=== PATIENT | male | born 1970 | race Hispanic/Latino ===

== ENCOUNTER 2022-04-19 17:35 | Emergency (ER) | payer SELFPAY ==
--- NOTE | 2022-04-19 18:09 | EDPHYS ---
Physician Documentation [facility] Name: Rivera Mccoy Age: 52 yrs Sex: Male : 1970 Arrival Date: 04/19/2022 Time: 17:36 Bed Waiting Private MD: ED Physician Dominic Hurt HPI: 04/19 18:25 This 52 yrs old Male presents to ER via Ambulatory with complaints of Poison kb Tsering. 18:25 The patient presents with cellulitis of the left leg and right leg. Description: kb erythematous, swollen, warm. Onset: The symptoms/episode began/occurred 1 week(s) ago. Possible cause(s): poison tsering. Associated signs and symptoms: Pertinent positives: erythema, swelling, Pertinent negatives: fever. Modifying factors: the symptoms are alleviated by nothing, the symptoms are aggravated by nothing. Severity of symptoms: At their worst the symptoms were moderate, in the emergency department the symptoms are unchanged. The patient has not experienced similar symptoms in the past. The patient has not recently seen a physician. Pt reports he has a rash from poison tsering and it got infected. States he was put on keflex, but it hasn't gotten better and came today to get something for the itching. Started keflex 4 days ago. Denies fever. . Historical: - Allergies: 18:07 No Known Allergies; aa5 - PMHx: 18:06 Hypertension; aa5 ROS: 18:17 Constitutional: Negative for fever, chills, and weight loss. kb 18:24 Skin: Positive for erythema, rash, swelling, of the right leg and left leg. kb 18:24 All other systems are negative. Exam: 18:24 Constitutional: This is a well developed, well nourished patient who is awake, alert, kb and in no acute distress. Head/Face: Normocephalic, atraumatic. ENT: Moist Mucous membranes Respiratory: Respirations even and unlabored. No increased work of breathing. Talking in full sentences MS/ Extremity: Pulses equal, no cyanosis. Neurovascular intact. Full, normal range of motion. Neuro: Awake and alert, GCS 15, oriented to person, place, time, and situation. Moves all extremities. Normal gait. Psych: Awake, alert, with orientation to person, place and time. Behavior, mood, and affect are within normal limits. 18:24 Skin: cellulitis, that is moderate, on the right and left lower leg, rash a moderate rash is noted, consistent with contact dermatitis, on the right leg and left leg. Vital Signs: 18:05 BP 165 / 110; Pulse 72; Resp 18 S; Temp 98.5(O); Pulse Ox 100% on R/A; Weight 99.79 kg aa5 (R); Height 5 ft. 10 in. (177.80 cm) (R); 18:05 Body Mass Index 31.57 (99.79 kg, 177.80 cm) aa5 MDM: 18:08 Patient medically screened. kb 18:17 Data reviewed: vital signs, nurses notes. Data interpreted: Pulse oximetry: on room air kb is 100 %. Interpretation: normal. Counseling: I had a detailed discussion with the patient and/or guardian regarding: the historical points, exam findings, and any diagnostic results supporting the discharge/admit diagnosis, the need for outpatient follow up, a family practitioner, to return to the emergency department if symptoms worsen or persist or if there are any questions or concerns that arise at home. Administered Medications: No medications were administered Disposition: 18:45 Co-signature as Attending Physician, Dominic Hurt MD. rn Disposition Summary: 04/19/22 18:08 Discharge Ordered Location: Home kb Condition: Stable kb Diagnosis - Cellulitis of left lower limb kb - Cellulitis of right lower limb kb - Allergic contact dermatitis due to plants, except food kb Followup: kb - With: Emergency Department - When: As needed - Reason: Worsening of condition Followup: kb - With: Private Physician - When: 2 - 3 days - Reason: Recheck today's complaints, Continuance of care, Re-evaluation by your physician Discharge Instructions: - Discharge Summary Sheet kb - Cellulitis, Adult, [id number] kb - Poison Tsering Dermatitis, [id number] kb Forms: - Medication Reconciliation Form kb - Thank You Letter kb - Antibiotic Education kb - Prescription Opioid Use kb Prescriptions: - Bactrim DS 800-160 mg Oral Tablet - take 1 tablet by ORAL route every 12 hours for 10 days; 20 tablet; Refills: 0, kb Product Selection Permitted Signatures: Rita Vázquez, GIUSEPPE-C DIRECTOR TALENT-Ckb Hurt, Dominic, MD MD rn Milton, Meera, RN RN aa5
--- NOTE | 2022-04-19 18:09 | ER ---
Nurse's Notes [facility] Name: Rivera Mccoy Age: 52 yrs Sex: Male : 1970 Arrival Date: 04/19/2022 Time: 17:36 Bed Waiting Private MD: Diagnosis: Cellulitis of left lower limb;Cellulitis of right lower limb;Allergic contact dermatitis due to plants, except food Presentation: 04/19 18:05 Chief complaint: Patient states: exposed to poison alin 1 week ago, rash to shira legs, aa5 and is currently taking Keflex and Mupirocin. Coronavirus screen: At this time, the client does not indicate any symptoms associated with coronavirus-19. Ebola Screen: Patient denies travel to an Ebola-affected area in the 21 days before illness onset. Initial Sepsis Screen: Does the patient meet any 2 criteria? No. Patient's initial sepsis screen is negative. Does the patient have a suspected source of infection? Yes:. Risk Assessment: Do you want to hurt yourself or someone else? Patient reports no desire to harm self or others. Onset of symptoms was March 2022. 18:05 Method Of Arrival: Ambulatory aa5 18:05 Acuity: SHANITA 5 aa5 Historical: - Allergies: 18:07 No Known Allergies; aa5 - PMHx: 18:06 Hypertension; aa5 Assessment: 18:12 Reassessment: Patient is alert, oriented x 3, equal unlabored respirations, skin aa5 warm/dry/pink. Vital Signs: 18:05 BP 165 / 110; Pulse 72; Resp 18 S; Temp 98.5(O); Pulse Ox 100% on R/A; Weight 99.79 kg aa5 (R); Height 5 ft. 10 in. (177.80 cm) (R); 18:05 Body Mass Index 31.57 (99.79 kg, 177.80 cm) aa5 ED Course: 17:36 Patient arrived in ED. mr 17:38 Rita Vázquez FNP-C [facility] kb 17:38 Dominic Hurt MD is Attending Physician. kb 18:05 Arm band placed on. aa5 18:06 Triage completed. aa5 18:12 No provider procedures requiring assistance completed. Patient did not have IV access aa5 during this emergency room visit. Administered Medications: No medications were administered Medication: 18:12 VIS not applicable for this client. aa5 Outcome: 18:08 Discharge ordered by MD. oconnor 18:12 Discharged to home ambulatory. aa5 18:12 Condition: stable 18:12 Discharge instructions given to patient, Instructed on discharge instructions, follow up and referral plans. medication usage, Demonstrated understanding of instructions, follow-up care, medications, Prescriptions given X 1. 18:13 Patient left the ED. aa5 Signatures: Rita Vázquez, JULES CHIN-Audelia Márquez Yoan, Meera, RN RN aa5
[2022-04-19 19:11] VITALS: BP 165/110; TEMP 98.5; O2SAT 100
== END 2022-04-19 18:13 | disposition home or self-care (01) ==
LOC: ER 17:35
DX: L23.7 Allergic contact dermatitis due to plants, except food (principal); L03.116 Cellulitis of left lower limb; L03.115 Cellulitis of right lower limb
CPT/HCPCS: 99282

== ENCOUNTER 2022-06-23 20:39 | Emergency (ER) | payer SELFPAY ==
[2022-06-23] MEDS ORDERED: MORPHINE 4 MG/ML SYR ONE (21:50)
[2022-06-23] MEDS ORDERED: dexAMETHasone 10 MG/ML VIAL ONE (21:50)
[2022-06-23] MEDS ORDERED: KETOROLAC 30 MG/ML INJ ONE (21:50)
--- NOTE | 2022-06-23 22:32 | EDPHYS ---
Physician Documentation [facility] Name: Rivera Mccoy Age: 52 yrs Sex: Male : 1970 Arrival Date: 06/23/2022 Time: 20:41 Bed 15 Private MD: ED Physician Dominic Hurt HPI: 06/23 21:21 This 52 yrs old Male presents to ER via Ambulatory with complaints of Low Back rn Pain. 21:21 This 52 yrs old Male presents to ER via Ambulatory with complaints of Low Back rn Pain. 21:21 The patient presents with pain that is acute. The symptoms are located in the low back. rn The pain radiates to the right leg. Onset: The symptoms/episode began/occurred yesterday. Modifying factors: The patient symptoms are alleviated by remaining still, the patient symptoms are aggravated by any movement. Associated signs and symptoms: Pertinent negatives: abdominal pain, chest pain, dysuria, fever, hematuria, incontinence, nausea, numbness, tingling, urinary retention, vomiting, weakness. Severity of symptoms: At their worst the symptoms were moderate, in the emergency department the symptoms are unchanged. The patient has experienced similar episodes in the past. The patient has not recently seen a physician. Pt reports has had back pain several times in past, similar to today, just worse today. Radiates to right buttocks, but no weakness/numbness/bowel/bladder issues. . Historical: - Allergies: 20:47 No Known Allergies; hb - Home Meds: 20:47 lisinopril Oral [Active]; hb - PMHx: 20:47 Hypertension; hb - Immunization history:: Adult Immunizations up to date. - Social history:: Smoking status: Patient denies any tobacco usage or history of. - Family history:: not pertinent. - Hospitalizations: : No recent hospitalization is reported. ROS: 21:21 Constitutional: Negative for fever, chills, and weight loss, Eyes: Negative for injury, rn pain, redness, and discharge, Neck: Negative for injury, pain, and swelling, Cardiovascular: Negative for chest pain, palpitations, and edema, Respiratory: Negative for shortness of breath, cough, wheezing, and pleuritic chest pain, Abdomen/GI: Negative for abdominal pain, nausea, vomiting, diarrhea, and constipation, Back: Negative for injury : Negative for injury, bleeding, discharge, and swelling, MS/Extremity: Negative for injury and deformity, Skin: Negative for injury, rash, and discoloration, Neuro: Negative for headache, weakness, numbness, tingling, and seizure. Exam: 21:21 Constitutional: This is a well developed, well nourished patient who is awake, alert, rn pacing in triage Head/Face: Normocephalic, atraumatic. Cardiovascular: Regular rate and rhythm. No pulse deficits. Respiratory: No increased work of breathing, no retractions or nasal flaring. Abdomen/GI: Soft, non-tender Back: No spinal tenderness. + mild tenderness right lower back. Skin: Warm, dry MS/ Extremity: Pulses equal, no cyanosis. Neurovascular intact. Full, normal range of motion. Equal circumference. Neuro: Awake and alert, GCS 15, oriented to person, place, time, and situation. Cranial nerves II-XII grossly intact. Motor strength 5/5 in all extremities. Sensory grossly intact. Cerebellar exam normal. Antalgic gait. Vital Signs: 20:45 BP 158 / 77; Pulse 70; Resp 16; Temp 97.8; Pulse Ox 98% on R/A; Weight 98.88 kg; Height hb 5 ft. 10 in. (177.80 cm); Pain 9/10; 22:02 BP 146 / 88; Pulse 56; Resp 18; Pulse Ox 96% on R/A; ke1 22:30 Pain 2/10; ke1 22:32 Pain 2/10; ke1 22:35 BP 142 / 83; Pulse 58; Resp 18; Pulse Ox 99% on R/A; Pain 1/10; ke1 20:45 Body Mass Index 31.28 (98.88 kg, 177.80 cm) hb MDM: 20:47 Patient medically screened. rn 22:28 Differential diagnosis: strain, sciatica, Herniated disc. Data reviewed: vital signs, rn nurses notes, and as a result, I will discharge patient. Counseling: I had a detailed discussion with the patient and/or guardian regarding: the historical points, exam findings, and any diagnostic results supporting the discharge/admit diagnosis, the need for outpatient follow up, to return to the emergency department if symptoms worsen or persist or if there are any questions or concerns that arise at home. Response to treatment: the patient's symptoms have markedly improved after treatment, and as a result, I will discharge patient. Special discussion: I discussed with the patient/guardian in detail that at this point there is no indication for admission to the hospital. It is understood, however, that if the symptoms persist or worsen the patient needs to return immediately for re-evaluation. 06/23 20:52 Order name: IV Start; Complete Time: 22:01 rn Administered Medications: 22: Drug: Decadron - Dexamethasone 10 mg Route: IVP; Site: right antecubital; ke1 22:32 Follow up: Response: No adverse reaction ke1 22:01 Drug: morphine 4 mg Route: IVP; Infused Over: 4 mins; Site: right antecubital; ke1 22:32 Follow up: Pain 2/10 Adult; Response: Pain is decreased ke1 22:01 Drug: Ketorolac 30 mg Route: IVP; Site: right antecubital; ke1 22:30 Follow up: Pain 2/10 Adult; Response: Pain is decreased ke1 Disposition Summary: 06/23/22 22:31 Discharge Ordered Location: Home rn Problem: new rn Symptoms: have improved rn Condition: Stable rn Diagnosis - Low back pain rn - Muscle spasm of back rn - Radiculopathy, lumbar region rn Followup: rn - With: Private Physician - When: As needed - Reason: Recheck today's complaints, Re-evaluation by your physician Discharge Instructions: - Discharge Summary Sheet rn - Acute Back Pain, Adult rn - Lumbosacral Radiculopathy rn - Muscle Cramps and Spasms rn - Pinched Nerve rn - Back Exercises rn Forms: - Medication Reconciliation Form rn - Thank You Letter rn - Antibiotic porcelain turner - Prescription Opioid Use rn - Work release form ke1 Prescriptions: - Cyclobenzaprine 10 mg Oral Tablet - take 1 tablet by ORAL route every 8 hours As needed; 12 tablet; Refills: 0, rn Product Selection Permitted - Tramadol 50 mg Oral Tablet - take 1 tablet by ORAL route every 8 hours as needed; 12 tablet; Refills: 0, rn Product Selection Permitted - Medrol (Ramone) 4 mg Oral Tablets, Dose Pack - take 1 tablet by ORAL route as directed - follow package instructions; 1 rn packet; Refills: 0, Product Selection Permitted Signatures: Dominic Hurt MD MD rn Baxter, Heather, RN RN hb Ebrottie, Kouassi, RN RN ke1
--- NOTE | 2022-06-23 22:32 | ER ---
Nurse's Notes [facility] Name: Rivera Mccoy Age: 52 yrs Sex: Male : 1970 Arrival Date: 06/23/2022 Time: 20:41 Bed 15 Private MD: Diagnosis: Low back pain;Muscle spasm of back;Radiculopathy, lumbar region Presentation: 06/23 20:45 Chief complaint: Low back that radiates to right buttock x 2 days. Denies injury. hb Coronavirus screen: At this time, the client does not indicate any symptoms associated with coronavirus-19. Ebola Screen: No symptoms or risks identified at this time. Risk Assessment: Do you want to hurt yourself or someone else? Patient reports no desire to harm self or others. Onset of symptoms was June 22, 2022. 20:45 Method Of Arrival: Ambulatory hb 20:45 Acuity: SHANITA 3 hb 22:01 Initial Sepsis Screen: Does the patient meet any 2 criteria? No. Patient's initial ke1 sepsis screen is negative. Does the patient have a suspected source of infection? No. Patient's initial sepsis screen is negative. Triage Assessment: 22:01 General: Appears uncomfortable, Behavior is appropriate for age. ke1 Historical: - Allergies: 20:47 No Known Allergies; hb - Home Meds: 20:47 lisinopril Oral [Active]; hb - PMHx: 20:47 Hypertension; hb - Immunization history:: Adult Immunizations up to date. - Social history:: Smoking status: Patient denies any tobacco usage or history of. - Family history:: not pertinent. - Hospitalizations: : No recent hospitalization is reported. Screenin:59 Abuse screen: Denies threats or abuse. Nutritional screening: No deficits noted. ke1 Tuberculosis screening: No symptoms or risk factors identified. Fall Risk None identified. Assessment: 21:59 Pain: Complains of pain in back Pain radiates to right leg Pain currently is 9 out of ke1 10 on a pain scale. at worst was 10 out of 10 on a pain scale. level that patient reports is acceptable is 5 out of 10 on a pain scale. Vital Signs: 20:45 BP 158 / 77; Pulse 70; Resp 16; Temp 97.8; Pulse Ox 98% on R/A; Weight 98.88 kg; Height hb 5 ft. 10 in. (177.80 cm); Pain 9/10; 22:02 BP 146 / 88; Pulse 56; Resp 18; Pulse Ox 96% on R/A; ke1 22:30 Pain 2/10; ke1 22:32 Pain 2/10; ke1 22:35 BP 142 / 83; Pulse 58; Resp 18; Pulse Ox 99% on R/A; Pain 1/10; ke1 20:45 Body Mass Index 31.28 (98.88 kg, 177.80 cm) hb ED Course: 20:41 Patient arrived in ED. ja2 20:47 Triage completed. hb 20:47 Dominic Hurt MD is Attending Physician. rn 20:47 Arm band placed on. hb 21:28 Chiara Cordero RN is Primary Nurse. ke1 22:00 Inserted saline lock: 20 gauge in right antecubital area, using aseptic technique. ke1 22:01 Bed in low position. Call light in reach. ke1 22:32 No provider procedures requiring assistance completed. ke1 22:46 IV discontinued. ke1 Administered Medications: 22:01 Drug: Decadron - Dexamethasone 10 mg Route: IVP; Site: right antecubital; ke1 22:32 Follow up: Response: No adverse reaction ke1 22:01 Drug: morphine 4 mg Route: IVP; Infused Over: 4 mins; Site: right antecubital; ke1 22:32 Follow up: Pain 2/10 Adult; Response: Pain is decreased ke1 22:01 Drug: Ketorolac 30 mg Route: IVP; Site: right antecubital; ke1 22:30 Follow up: Pain 2/10 Adult; Response: Pain is decreased ke1 Medication: 22:32 VIS not applicable for this client. ke1 Outcome: 22:31 Discharge ordered by . rn 22:45 Discharged to home ambulatory. ke1 22:45 Condition: good 22:45 Discharge instructions given to patient. 22:47 Patient left the ED. ke1 Signatures: Dominic Hurt MD MD rn Baxter, Heather, RN RN Karlee Soares [facility] Chiara Cordero RN RN ke1 Corrections: (The following items were deleted from the chart) 20:50 20:45 Acuity: SHANITA 4 hb hb 20:51 20:45 Acuity: SHANITA 4 hb hb 22:00 21:59 Pain: Complains of pain in back Pain radiates to right leg ke1 ke1
[2022-06-24 01:17] VITALS: TEMP 97.8
[2022-06-24 01:26] VITALS: BP 142/83; O2SAT 99
== END 2022-06-23 22:47 | disposition home or self-care (01) ==
LOC: ER 20:39
DX: M62.830 Muscle spasm of back (principal); M54.16 Radiculopathy, lumbar region; I10 Essential (primary) hypertension
CPT/HCPCS: J1100

== ENCOUNTER 2023-03-07 12:23 | Emergency (ER) | payer SELFPAY ==
[2023-03-07] MEDS ORDERED: MECLIZINE HCL 12.5 MG TAB ONE (13:04)
[2023-03-07] MEDS ORDERED: ONDANSETRON 4 MG/2 ML VIAL ONE (13:04)
[2023-03-07] MEDS ORDERED: NA CHLORIDE 0.9% 1,000 ML ONE (13:04)
--- NOTE | 2023-03-07 13:05 | RAD REPORT ---
EXAM DESCRIPTION: CT - Ct Stroke Brain Wo Cont - 03/07/2023 12:58 pm CLINICAL HISTORY: STROKE ALERT COMPARISON: No comparisons TECHNIQUE: All CT scans are performed using dose optimization technique as appropriate and may inclu de automated exposure control or mA/KV adjustment according to patient size. FINDINGS: No intracranial hemorrhage, hydrocephalus or extra-axial fluid collection.No areas of brai n edema or evidence of midline shift. 2 cm mucous retention cyst versus polyp right maxillary antrum. The paranasal sinuses and mastoids ar e otherwise clear. The calvarium is intact. IMPRESSION: No acute intracranial abnormality. If there is continued clinical concern for CVA, MR imaging of the brain would be recommended. The findings were discussed with Dr. Hurt in the ER On 03/07/2023 at 1 p.m. by telephone.
[2023-03-07 13:10] LABS: Absolute Lymphocytes (CBC) 1.3 K/uL (0.7-4.9); Hematocrit 46.1 % (39.6-49.0); Lymphocytes % 28.8 % (15.3-44.8); MCV 84.2 fL (80-100); MPV 7.9 fL (7.6-11.3); RBC Red Blood Cell Count 5.47 M/uL (4.33-5.43)
--- NOTE | 2023-03-07 13:15 | RAD REPORT ---
EXAM DESCRIPTION: CT - Head angio - 03/07/2023 1:02 pm CLINICAL HISTORY: DIZZINESS Headache, drowsiness, CVA symptomology COMPARISON: Ct Stroke Brain Wo Cont dated 03/07/2023 TECHNIQUE: CT angiography of the head was performed with MIPs. All CT scans are performed using dose optimization technique as appropriate and may include automated exposure control or mA/KV adjustment according to patient size. FINDINGS: No evidence of large vessel occlusion. No evidence of aneurysm is detected. No flow-limiti ng stenosis or vascular malformation identified. Antegrade flow is seen in the vertebral arteries. The vertebral arteries are codominant. The visualized dural venous sinuses are patent. IMPRESSION: No significant flow abnormality is detected.
--- NOTE | 2023-03-07 13:22 | RAD REPORT ---
EXAM DESCRIPTION: CT - Neck Angio - 03/07/2023 1:02 pm CLINICAL HISTORY: dizziness Headache, drowsiness COMPARISON: No comparisons TECHNIQUE: CT angiography of the neck vessels was performed with MIPs. All CT scans are performed using dose optimization technique as appropriate and may include automated exposure control or mA/KV adjustment according to patient size. FINDINGS: A left aortic arch is identified with normal three vessel configuration of the great vesse ls. No significant flow abnormality is seen of the common carotid bilaterally. No significant stenosis is identified involving the cervical segments of both internal carotid arteri es. Normal flow is seen within both vertebral arteries. IMPRESSION: No significant flow abnormality of the neck vessels is identified. NASCET criteria used. Mild 0-49% stenosis Moderate 50-69% stenosis Severe 70-99% stenosis
--- NOTE | 2023-03-07 13:25 | RAD REPORT ---
EXAM DESCRIPTION: RAD - Chest Single View - 03/07/2023 1:08 pm CLINICAL HISTORY: dizziness Chest pain. COMPARISON: Chest Single View dated 07/05/2017; CHEST SINGLE VIEW dated 12/18/2015 FINDINGS: Portable technique limits examination quality. The lungs are grossly clear. The heart is normal in size. No displaced fractures. IMPRESSION: No acute intrathoracic process suspected.
[2023-03-07 13:40] LABS: Magnesium 2.3 mg/dL (1.6-2.4); Potassium 3.8 mEq/L (3.5-5.1); Troponin High Sensitivity 32.7 pg/mL (<58.9)
[2023-03-07 13:54] LABS: Protime INR 1.06
[2023-03-07] MEDS ORDERED: ASPIRIN 325 MG TAB ONE (14:01)
[2023-03-07] MEDS ORDERED: FOLIC ACID 5 MG/ML VIAL ONE (14:02)
--- NOTE | 2023-03-07 14:15 | RAD REPORT ---
EXAM DESCRIPTION: MRI - Brain Wo Cont - 03/07/2023 2:07 pm CLINICAL HISTORY: rapid stroke protocol, dizziness Headache, drowsiness, CVA symptomology COMPARISON: Head angio dated 03/07/2023; Ct Stroke Brain Wo Cont dated 03/07/2023; Neck Angio dated TECHNIQUE: Multi-sequence, multiplanar MR imaging of the brain was performed without contrast. FINDINGS: No intracranial hemorrhage, hydrocephalus or extra-axial fluid collections. No edema or sh ift of midline structures. 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 DWI is negative for acute CVA. Midline structures are normally formed. Mastoid air cells and paranasal sinuses are clear. IMPRESSION: Negative for acute CVA or other acute intracranial findings.
--- NOTE | 2023-03-07 15:03 | EDPHYS ---
Physician Documentation [facility] Name: Rivera Mccoy Age: 53 yrs Sex: Male : 1970 Arrival Date: 03/07/2023 Time: 12:23 Bed 8 Private MD: ED Physician Dominic Hurt HPI: 03/07 12:48 This 53 yrs old Male presents to ER via Ambulatory with complaints of rn Dizziness, Nausea, Weakness. 12:48 The patient presents with dizziness, feeling off balance, sense of spinning. Onset: The rn symptoms/episode began/occurred at 11:00. Context: occurred gym, occurred while the patient was exercising. Modifying factors: The symptoms are alleviated by holding head still, the symptoms are aggravated by movement of head, standing up, changing position. Severity of symptoms: At their worst the symptoms were moderate in the emergency department the symptoms are unchanged. The patient has experienced a previous episode. The patient has not recently seen a physician. Pt reports at gym, finished sauna and was in hot tub, felt dizzy, like room spinning, difficulty walking, and feels weakness over entire body. No focal weakness/numbness. No headache. Reports has happened once before years ago and was 2/2 electrolyte deficiencies and dehydration. . Historical: - Allergies: 12:56 No Known Allergies; nj1 - PMHx: 12:43 Hypertension; nj1 - Immunization history:: Client reports receiving the 2nd dose of the Covid vaccine. - Social history:: Smoking status: Patient denies any tobacco usage or history of. - Family history:: not pertinent. - Hospitalizations: : No recent hospitalization is reported. ROS: 12:50 Constitutional: Negative for fever, chills, and weight loss, Eyes: Negative for injury, rn pain, redness, and discharge, Neck: Negative for injury, pain, and swelling, Cardiovascular: Negative for chest pain, palpitations, and edema, Respiratory: Negative for shortness of breath, cough, wheezing, and pleuritic chest pain, Abdomen/GI: + nausea Back: Negative for injury and pain, MS/Extremity: Negative for injury and deformity, Skin: Negative for injury, rash, and discoloration, Neuro: + dizziness Exam: 12:50 Constitutional: This is a well developed, well nourished patient who is awake, alert, rn eyes closed, sitting upright Head/Face: Normocephalic, atraumatic. Eyes: + nystagmus present, gaze to right causes worsening of symptoms. Neck: Trachea midline, no thyromegaly or masses palpated, and no cervical lymphadenopathy. Supple, full range of motion without nuchal rigidity, or vertebral point tenderness. No Meningismus. Cardiovascular: Regular rate and rhythm. No pulse deficits. Respiratory: No increased work of breathing, no retractions or nasal flaring. Abdomen/GI: Soft, non-tender Skin: Warm, dry MS/ Extremity: Pulses equal, no cyanosis. Neuro: Awake and alert, GCS 15, oriented to person, place, time, and situation. Cranial nerves II-XII grossly intact. Motor strength 5/5 in all extremities. Sensory grossly intact. 15:29 ECG was reviewed by the Attending Physician. rn Vital Signs: 12:38 BP 147 / 110; Pulse 68; Resp 18; Temp 97.6; Pulse Ox 100% ; nj1 13:40 BP 151 / 96; Pulse 51; Resp 16; Pulse Ox 99% on R/A; jl7 13:45 BP 146 / 96; Pulse 48; Resp 16; Pulse Ox 100% ; jl7 14:58 BP 136 / 86; Pulse 49; Resp 15; Pulse Ox 99% ; jl7 15:29 BP 140 / 88; Pulse 58; Pulse Ox 100% ; ap3 NIH Stroke Scale Scores: 13:30 NIHSS Score: 0 jl7 MDM: 12:35 Patient medically screened. rn 13:04 ED course: CT head without contrast neg for anything acute per Dr. Abrams. . rn 13:14 Management of patient was discussed with the following: Vehicle Operator Technician: Dr. Benedict, rn notified \T\ 13:15, states if ct head without contrast neg, and can get CTA and rapid MRI without contrast with neg results, no need for TNkase and stroke effectively ruled out, to treat as is vertigo. CTA and MRI pending. . 14:18 ED course: MRI brain neg for acute CVA. CTA head/neck neg for LVO.. rn 14:59 Differential diagnosis: CVA, generalized weakness, hyperventilation, hypovolemia, rn idiopathic dizziness, TIA, vertigo. Data reviewed: vital signs, nurses notes, lab test result(s), EKG, radiologic studies, CT scan, MRI, and as a result, I will discharge patient. Care significantly affected by the following chronic conditions: Hypertension. Counseling: I had a detailed discussion with the patient and/or guardian regarding: the historical points, exam findings, and any diagnostic results supporting the discharge/admit diagnosis, lab results, radiology results, the need for outpatient follow up, to return to the emergency department if symptoms worsen or persist or if there are any questions or concerns that arise at home. 15:05 ED course: Pt feels much better. . rn 03/07 12:48 Order name: Basic Metabolic Panel; Complete Time: 14: rn 03/07 12:48 Order name: CBC with Diff; Complete Time: 13:20 rn 03/07 12:48 Order name: High Sensitivity Troponin; Complete Time: 14: rn 03/07 12:48 Order name: Magnesium; Complete Time: 14: rn 03/07 12:48 Order name: Protime (+inr); Complete Time: 14: rn 03/07 12:48 Order name: Ptt, Activated; Complete Time: 14: rn 03/07 13:53 Order name: Glucose, Ancillary Testing; Complete Time: 14:05 EDNC 03/07 14:30 Order name: CREATININE WHOLE BLOOD; Complete Time: 14:41 EDNC 03/07 12:48 Order name: CT Stroke Brain w/o Contrast; Complete Time: 13:09 rn 03/07 12:48 Order name: Stroke CXR 1 View; Complete Time: 13:27 rn 03/07 12:48 Order name: CT Head Angio; Complete Time: 13:20 rn 03/07 12:48 Order name: Neck Angio CT; Complete Time: 13:27 rn 03/07 12:59 Order name: Brain Wo Cont; Complete Time: 14:17 EDNC 03/07 12:48 Order name: EKG; Complete Time: 12:48 rn 03/07 12:48 Order name: Accucheck; Complete Time: 13:47 rn 03/07 12:48 Order name: Cardiac monitoring; Complete Time: 13:47 rn 03/07 12:48 Order name: EKG - Nurse/Tech; Complete Time: 13:47 rn 03/07 12:48 Order name: IV Saline Lock; Complete Time: 13:47 rn 03/07 12:48 Order name: Labs collected and sent; Complete Time: 13:47 rn 03/07 12:48 Order name: NPO; Complete Time: 13:47 rn 03/07 12:48 Order name: O2 Per Protocol; Complete Time: 13:47 rn 03/07 12:48 Order name: O2 Sat Monitoring; Complete Time: 13:48 rn 03/07 12:48 Order name: Stroke Swallow Screen; Complete Time: 13:48 rn EC:29 Rate is 50 beats/min. Rhythm is regular. QRS [place] is Normal. ME interval is normal. QRS rn interval is normal. QT interval is normal. No Q waves. T waves are Inverted in leads III, V5, V6. No ST changes noted. Clinical impression: Sinus bradycardia. Interpreted by me. Reviewed by me. Administered Medications: 13:47 Drug: NS 0.9% IV 1000 ml Route: IV; Rate: 1000 ml; Site: right antecubital; jl7 15:29 Follow up: IV Status: Completed infusion ap3 13:47 Drug: Meclizine PO 50 mg Route: PO; jl7 15:29 Follow up: Response: Vomiting decreased ap3 13:47 Drug: Ondansetron IVP 4 mg Route: IVP; Site: right antecubital; jl7 15:28 Follow up: Response: No adverse reaction; Nausea is decreased ap3 13:56 Drug: Aspirin PO 325 mg Route: PO; ap3 15:28 Follow up: Response: No adverse reaction ap3 13:56 Drug: foLIC Acid IVPB 1 mg Route: IVPB; Site: right antecubital; ap3 15:28 Follow up: Response: No adverse reaction; IV Status: Completed infusion ap3 Point of Care Testing: Blood Glucose: 13:45 Blood Glucose: 125 mg/dL; jl7 Ranges: Critical Glucose Levels:Adult <50 mg/dl or >400 mg/dl <40 mg/dl or >180 mg/dl Disposition Summary: 03/07/23 15:03 Discharge Ordered Location: Home rn Problem: new rn Symptoms: have improved rn Condition: Stable rn Diagnosis - Vertigo rn - Essential (primary) hypertension rn Followup: rn - With: Edward Benedict MD - When: As needed - Reason: Recheck today's complaints, Re-evaluation by your physician Discharge Instructions: - Discharge Summary Sheet rn - Hypertension, Adult rn - Vertigo rn - Managing Your Hypertension rn Forms: - Medication Reconciliation Form rn - Thank You Letter rn - Antibiotic internal communications writer - Prescription Opioid Use rn Prescriptions: - ondansetron 4 mg Oral Tablet,disintegrating - take 1 tablet by ORAL route every 8-10 hours As needed; 15 tablet; Refills: 0, rn Product Selection Permitted - Meclizine 25 mg Oral Tablet - take 1 tablet by ORAL route every 8 hours As needed; 30 tablet; Refills: 0, rn Product Selection Permitted NIH Stroke Scale - NIH Stroke Score Date: 03/07/2023 Time: 13:30 Total Score = 0 10. Dysarthria (speech clarity - read or repeat words) - 0(Normal) 11. Extinction and Inattention (visual/tactile/auditory/spatial/personal) - 0(No abnormality) 1a. Level of Consciousness (LOC) - 0(Alert) 1b. Level of Consciousness (LOC) (Month \T\ Age) - 0(Both) 1c. LOC Commands (Open \T\ Closes Eyes/Revenue Field Agent) - 0(Both) 2. Best Gaze (Lateral Gaze Paresis) - 0(Normal) 3. Visual Field Loss - 0(No visual loss) 4. Facial Palsy - 0(Normal) 5a. Left Arm: Motor (10-second hold) - 0(No drift) 5b. Right Arm: Motor (10-second hold) - 0(No drift) 6a. Left Leg: Motor (5-second hold - always test supine) - 0(No drift) 6b. Right Leg: Motor (5-second hold - always test supine) - 0(No drift) 7. Limb Ataxia (finger/nose \T\ heel/martinez - test with eyes open) - 0(Absent) 8. Sensory Loss (pinprick arms/legs/face) - 0(Normal) 9. Best Language: Aphasia (description/naming/reading) - 0(No aphasia) Initials: jl7 Signatures: Dispatcher [employer] EDMS Dominic Hurt MD MD rn Leal, Jahala RN RN jl7 Aide Nguyen RN RN ap3 Daniel Brown, DO ms3 Audrey Nj RN RN nj1 Corrections: (The following items were deleted from the chart) 12:59 12:49 MR STROKE PROTOCOL+MRI.RAD.TANJA ordered. EDMS EDMS
--- NOTE | 2023-03-07 15:03 | ER ---
Nurse's Notes [facility] Name: Rivera Mccoy Age: 53 yrs Sex: Male : 1970 Arrival Date: 03/07/2023 Time: 12:23 Bed 8 Private MD: Diagnosis: Vertigo;Essential (primary) hypertension Presentation: 03/07 12:38 Chief complaint: Patient states: Dizziness today while at the gym, at around 11am, nj1 generalized weakness, chills. States it is worse when lying down and closing his eyes. Denies headache. Coronavirus screen: Coronavirus screen: Vaccine status: Patient reports receiving the 2nd dose of the covid vaccine. Ebola Screen: Patient denies travel to an Ebola-affected area in the 21 days before illness onset. Initial Sepsis Screen: Does the patient meet any 2 criteria? No. Patient's initial sepsis screen is negative. Does the patient have a suspected source of infection? No. Patient's initial sepsis screen is negative. Risk Assessment: Do you want to hurt yourself or someone else? Patient reports no desire to harm self or others. Onset of symptoms was March 07, 2023. 12:38 Method Of Arrival: Ambulatory nj1 12:38 Acuity: SHANITA 3 nj1 12:38 An acute neurological deficit is present. The charge nurse has been notified. jl7 Pre-hospital glucose is not applicable to this patient. Triage Assessment: 15:26 General: Appears in no apparent distress. comfortable, Behavior is calm, cooperative, ap3 appropriate for age. Pain: Denies pain. Neuro: Reports dizziness, which has improved. GI: Reports symptoms have improved. 15:27 The onset of the patients symptoms was at an unknown time. ap3 15:28 The onset of the patients symptoms was March 07, 2023 at 12:00. ap3 Stroke Activation: Symptom onset < 3 hours Physician: Stroke Attending; Name: ; Notified At: ; Arrived At: Physician: Chief Stroke Resident; Name: ; Notified At: ; Arrived At: Physician: Stroke Resident; Name: ; Notified At: ; Arrived At: Physician: ED Attending; Name: Blu; Notified At: 12:38; Arrived At: 12:38 Physician: ED Resident; Name: ; Notified At: ; Arrived At: Historical: - Allergies: 12:56 No Known Allergies; nj1 - PMHx: 12:43 Hypertension; nj1 - Immunization history:: Client reports receiving the 2nd dose of the Covid vaccine. - Social history:: Smoking status: Patient denies any tobacco usage or history of. - Family history:: not pertinent. - Hospitalizations: : No recent hospitalization is reported. Screenin:45 [facility] ED Fall Risk Assessment (Adult) History of falling in the last 3 months, jl7 including since admission No falls in past 3 months (0 pts) Confusion or Disorientation No (0 pts) Intoxicated or Sedated No (0 pts) Impaired Gait No (0 pts) Mobility Assist Device Used No (0 pt) Altered Elimination No (0 pt) Score/Fall Risk Level 0 - 2 = Low Risk Oriented to surroundings, Maintained a safe environment, Educated pt \T\ family on fall prevention, incl call for assistance when getting out of bed, Assessed \T\ reinforced patient's understanding of fall precautions, Provided non-skid footwear, Hourly rounding (assess needs \T\ fall precautionary measures) done, Used ambulatory aids as needed (educated on \T\ assisted with), Used gait belt as appropriate. Abuse screen: Denies threats or abuse. Denies injuries from another. Nutritional screening: No deficits noted. Tuberculosis screening: No symptoms or risk factors identified. Assessment: 12:47 Reassessment: Pt to CT and MRI via wheelchair. jl7 13:30 Reassessment: Pt returned from radiology. jl7 13:30 VAN Scoring: Arm Drift: Patients demonstrates NO arm weakness. Patient is VAN Negative. jl7 TNKase (Tenecteplase) Screening: Contraindications: Rapidly improving condition or minor deficit: Yes. 13:35 [place] Swallow Protocol Brief Cognitive Screen What is your name? Normal, Where are you jl7 right now? Normal, What year is it? Normal. Oral Mechanism Examination Facial Symmetry: Normal, Motion: Normal, Lip Closure: Normal, Oral Mechanism Result: Normal. 3 oz Water Swallow Challenge: Pt able to drink all water without stopping, coughing, choking or throat clearing: Yes Result: VARSHA DAILEY Notified: Dominic Hurt MD. 15:27 GI: Abdomen is non-distended. ap3 Vital Signs: 12:38 BP 147 / 110; Pulse 68; Resp 18; Temp 97.6; Pulse Ox 100% ; nj1 13:40 BP 151 / 96; Pulse 51; Resp 16; Pulse Ox 99% on R/A; jl7 13:45 BP 146 / 96; Pulse 48; Resp 16; Pulse Ox 100% ; jl7 14:58 BP 136 / 86; Pulse 49; Resp 15; Pulse Ox 99% ; jl7 15:29 BP 140 / 88; Pulse 58; Pulse Ox 100% ; ap3 NIH Stroke Scale Scores: 13:30 NIHSS Score: 0 jl7 ED Course: 12:27 Patient arrived in ED. mr 12:35 Dominic Hurt MD is Attending Physician. rn 12:43 Triage completed. nj1 12:46 Arm band placed on. nj1 12:53 Aleyda Bryant, NIKITA is Primary Nurse. jl7 12:59 CT Stroke Brain w/o Contrast In Process Unspecified. EDMS 12:59 Initial lab(s) drawn, by ks, sent to lab. Inserted saline lock: 20 gauge in right em1 antecubital area, using aseptic technique. Blood collected. 13:04 CT Head Angio In Process Unspecified. EDMS 13:[address] In Process Unspecified. EDMS 13:09 Stroke CXR 1 View In Process Unspecified. EDMS 13:29 Brain Wo Cont In Process Unspecified. EDMS 13:40 EKG done, by ED staff, reviewed by Dominic Hurt MD. jl7 13:45 Patient has correct armband on for positive identification. Bed in low position. Call [facility] light in reach. Side rails up X 1. Client placed on continuous cardiac and pulse oximetry monitoring. NIBP monitoring applied. conveyor monitor on. Door closed. Noise minimized. Warm blanket given. 13:45 No provider procedures requiring assistance completed. jl7 15:01 Edward Benedict MD is Referral Physician. rn 15:27 IV discontinued, intact, bleeding controlled, No redness/swelling at site. Pressure ap3 dressing applied. Administered Medications: 13:47 Drug: NS 0.9% IV 1000 ml Route: IV; Rate: 1000 ml; Site: right antecubital; jl7 15:29 Follow up: IV Status: Completed infusion ap3 13:47 Drug: Meclizine PO 50 mg Route: PO; jl7 15:29 Follow up: Response: Vomiting decreased ap3 13:47 Drug: Ondansetron IVP 4 mg Route: IVP; Site: right antecubital; jl7 15:28 Follow up: Response: No adverse reaction; Nausea is decreased ap3 13:56 Drug: Aspirin PO 325 mg Route: PO; ap3 15:28 Follow up: Response: No adverse reaction ap3 13:56 Drug: foLIC Acid IVPB 1 mg Route: IVPB; Site: right antecubital; ap3 15:28 Follow up: Response: No adverse reaction; IV Status: Completed infusion ap3 Medication: 13:30 VIS not applicable for this client. jl7 Point of Care Testing: Blood Glucose: 13:45 Blood Glucose: 125 mg/dL; jl7 Ranges: Outcome: 15:03 Discharge ordered by . rn 15:25 Discharged to home ambulatory, with family. ap3 15:25 Condition: good 15:25 Discharge instructions given to patient, family, Instructed on discharge instructions, follow up and referral plans. medication usage, Demonstrated understanding of instructions, follow-up care, medications, Prescriptions given X 2. 15:30 Patient left the ED. ap3 NIH Stroke Scale - NIH Stroke Score Date: 03/07/2023 Time: 13:30 Total Score = 0 10. Dysarthria (speech clarity - read or repeat words) - 0(Normal) 11. Extinction and Inattention (visual/tactile/auditory/spatial/personal) - 0(No abnormality) 1a. Level of Consciousness (LOC) - 0(Alert) 1b. Level of Consciousness (LOC) (Month \T\ Age) - 0(Both) 1c. LOC Commands (Open \T\ Closes Eyes/Motor Vehicle Or Caravan Salesperson) - 0(Both) 2. Best Gaze (Lateral Gaze Paresis) - 0(Normal) 3. Visual Field Loss - 0(No visual loss) 4. Facial Palsy - 0(Normal) 5a. Left Arm: Motor (10-second hold) - 0(No drift) 5b. Right Arm: Motor (10-second hold) - 0(No drift) 6a. Left Leg: Motor (5-second hold - always test supine) - 0(No drift) 6b. Right Leg: Motor (5-second hold - always test supine) - 0(No drift) 7. Limb Ataxia (finger/nose \T\ heel/martinez - test with eyes open) - 0(Absent) 8. Sensory Loss (pinprick arms/legs/face) - 0(Normal) 9. Best Language: Aphasia (description/naming/reading) - 0(No aphasia) Initials: jl7 Signatures: Dispatcher [employer] EDAudelia MayorgaDominic MD MD rn Martinez, Eric emAleyda Acevedo RN RN jl7 Aide Nguyen RN RN ap3 Audrey Nj RN RN nj1 Corrections: (The following items were deleted from the chart) 12:46 12:38 Coronavirus screen: nj1 nj1 12:51 12:38 Chief complaint: Patient states: Dizziness today while at the gym, nj1 generalized weakness, chills. States it is worse when lying down and closes his eyes. Denies headache. nj1
[2023-03-07 15:52] VITALS: TEMP 97.6
[2023-03-07 15:56] VITALS: BP 140/88; O2SAT 100
--- NOTE | 2023-03-08 07:48 | EKG ---
Test Date: 2023-03-07 Test Time: 13:38:40 Rental Management Trainee: NICHOLAS MEASUREMENT RESULTS: Intervals: Rate: 50 PA: 162 QRSD: 92 QT: 424 QTc: 386 [place]: P: 46 PA: 162 QRS: 62 T: -24 INTERPRETIVE STATEMENTS: Sinus bradycardia Otherwise normal ECG Compared to ECG 07/05/2017 14:15:25 Sinus rhythm no longer present T-wave abnormality no longer present Electronically Signed On 03-08-23 07:45:47 CDT by Chilo Schofield
== END 2023-03-07 15:30 | disposition home or self-care (01) ==
LOC: ER 12:23
DX: R42 Dizziness and giddiness (principal); I10 Essential (primary) hypertension
CPT/HCPCS: 36415; 70450; 70496; 70498; 70551; 71045; 80048; 82565; 82947; 83735; 84484; 85025; 85610; 85730; 93005; J2405; J7030; J8597; Q9967